=== PATIENT | female | born 1985 | race Caucasian/White ===

== ENCOUNTER 2024-01-12 15:18 | Emergency (ER) | payer BC, SELFPAY ==
[2024-01-12 15:21] VITALS: BP 155/100; PULSE 88; TEMP 36.8; O2SAT 100; BMI 39.2
[2024-01-12 16:12] LABS: Bilirubin Urine NEGATIVE (NEGATIVE); Blood Urine NEGATIVE (NEGATIVE); Clarity Urine CLEAR (CLEAR); Color Urine LT. YELLOW (YELLOW); Glucose Urine UA NEGATIVE (NEGATIVE); Ketones Urine NEGATIVE (NEGATIVE); Leukocyte Esterase Urine NEGATIVE (NEGATIVE); Nitrite Urine NEGATIVE (NEGATIVE); Protein Urine NEGATIVE (NEG/TRACE); Specific Gravity Urine <=1.005 (1.005-1.025); Urobilinogen Urine 0.2 EU/dL (0.2-1.0)
[2024-01-12 16:25] LABS: Bacteria Urine NONE SEEN #/HPF (NONE SEEN); Cast Seen? NONE SEEN #/LPF (NONE SEEN); Crystals Seen? None Seen #/HPF (None Seen); Mucus Urine NONE SEEN (NONE SEEN); RBC Urine NONE SEEN #/HPF (0-2); Squamous Epithelial Cell Urine FEW #/LPF (NONE/RARE); Urine Culture Indicated NO; WBC Urine NONE SEEN #/HPF (NONE SEEN)
[2024-01-12] MEDS: 0.9 % SODIUM CHLORIDE 1,000 ML 999 ML IV (16:37)
[2024-01-12 16:39] LABS: Basophils Percent Auto 0.3 % (0.2-2.0); Eosinophils Absolute Auto 0.1 10^3/uL (0.0-0.7); Hematocrit 41.1 % (36.0-48.0); Hemoglobin 13.1 g/dL (12.0-16.0); Immature Granulocytes Abs Auto 0.04 10^3/uL (0.00-0.03); Immature Granulocytes Pct Auto 0.6 % (0.0-0.5); Lymphocytes Absolute Auto 1.2 10^3/uL (1.2-3.8); Lymphocytes Percent Auto 16.7 % (20.5-60.0); Mean Corpuscular HGB Conc 31.9 g/dL (29.9-35.2); Mean Corpuscular Hemoglobin 27.4 pg (26.7-34.0); Monocytes Absolute Auto 0.4 10^3/uL (0.3-0.8); Monocytes Percent Auto 5.9 % (1.7-12.0); Neutrophils Absolute Auto 5.5 10^3/uL (1.4-6.5); Neutrophils Percent Auto 75.5 % (43.0-75.0); Platelet Count 215 10^3/uL (150-450); Red Blood Count 4.78 10^6/uL (4.20-5.40); Red Cell Distribution Width 13.5 % (11.0-15.0); White Blood Count 7.2 10^3/uL (4.0-11.0)
[2024-01-12 16:47] LABS: Anion Gap 14.1; BUN Creatinine Ratio 13.1; Calcium 8.7 mg/dL (8.5-10.1); Carbon Dioxide 26.2 mmol/L (21.0-32.0); Chloride 104 mmol/L (98-107); Estimated GFR (African America >60 (>=60); Estimated GFR (Non-African Ame >60 (>=60); Glucose 114 mg/dL (74-106); Potassium 4.3 mmol/L (3.5-5.1); Sodium 140 mmol/L (136-145)
--- NOTE | 2024-01-12 17:07 | CT_ITS ---
The [address] [address] Patient Name: GAMA CASTILLO MRN: [id number] date: 1985 Sex: F Assigned Patient Location: ER Current Patient Location: ED.MAIN Accession/Order Number: [id number] Exam Date: 01/12/2024 16:54 Report Date: 01/12/2024 18:13 At the request of: BALDEV POWERS Procedure: CT abdomen pelvis w con EXAM: CT abdomen pelvis w con HISTORY: lower abd pain COMPARISON: None. TECHNIQUE: Enhanced helical acquisition obtained through the abdomen and the pelvis. FINDINGS: The visualized lung bases and the pleural spaces are clear. The gallbladder is partially contracted. No significant biliary ductal dilatation. The liver, spleen, pancreas, adrenal glands and the kidneys are unremarkable. No enlarged lymph nodes within the abdomen or the pelvis. Small fat-containing umbilical hernia. Normal appendix. Small volume of free fluid within the pelvis. Prior hysterectomy. CT/CT abdomen pelvis w con IMPRESSION: 1. Small volume of free fluid within the pelvis. This may be physiologic. Prior hysterectomy. 2. Normal appendix. 3. Small fat-containing umbilical hernia. Electronically authenticated by: YO COOPER Date: 01/12/2024 18:13
--- NOTE | 2024-01-12 17:40 | ED.GENADUL1 ---
HPI HPI - General Adult General Chief complaint: Urogenital-Female Stated complaint: Abdominal Pain Time Seen by Provider: 01/12/24 15:23 Source: patient Mode of arrival: walk-in Limitations: no limitations History of Present Illness HPI narrative: 38-year-old female presents to the emergency department with complaint of pelvic pain. Onset about 3 days ago. Describes as sharp. Symptoms have been waxing and waning in severity. Has noted some increase in pain after urinating. She has had some urinary frequency. History of hysterectomy. Denies any fever, chills, nausea, vomiting, diarrhea. Quality:?Sharp Severity:?Mild Timing:?As above Context: Normal setting and activity? Modifying factors:?as above Associated symptoms: as above Related Data Home Medications ?Medication ?Instructions ?Recorded ?Confirmed duloxetine 60 mg capsule,delayed 60 mg PO DAILY 01/12/24 01/12/24 release omeprazole 20 mg capsule,delayed 20 mg PO DAILY 01/12/24 01/12/24 release semaglutide (weight loss) 0.25 0.25 mg subcut Q7D 01/12/24 01/12/24 mg/0.5 mL subcutaneous pen injector (Wegovy) Allergies Allergy/AdvReac Type Severity Reaction Status Date / Time No Known Drug Allergies Allergy Verified 01/12/24 15:24 Opioid HPI Opioid Management Most Recent Opioid Data: No Data to Display Review of Systems ROS Constitutional Denies: fever, chills or fatigue Cardiovascular Denies: chest pain Respiratory Denies: shortness of breath Gastrointestinal Reports: abdominal pain; Denies: nausea or vomiting Genitourinary Reports: urinary frequency and pelvic pain; Denies: painful urination or blood in urine Neurological Denies: headache Exam Constitutional Vital Signs, click to edit/add: Last Vital Signs Temp 98.2 F 01/12/24 15:21 Pulse 88 01/12/24 15:21 Resp 18 01/12/24 15:21 BP 155/100 H 01/12/24 15:21 Pulse Ox 100 01/12/24 15:21 O2 Del Method Room Air 01/12/24 15:21 Common normals: no apparent distress, oriented x3 and alert HENMT Common normals: normocephalic and head/scalp atraumatic Nose: external nose normal Respiratory Common normals: normal respiratory effort and clear to auscultation bilaterally Cardio Common normals: regular rate, regular rhythm and no murmurs Rate: regular rate Rhythm: regular rhythm GI Inspection: normal to inspection Palpation: soft and tender (epigastric and suprapubic); no guarding and not rigid Extremity Common normals: normal to inspection Neuro Common normals: oriented x3, no focal motor deficits, no sensory deficits noted and gait normal Sensorium/orientation: alert Psych Common normals: thought process normal, cooperative and affect normal Thought process: normal thought process Course Reevaluation(s) Reevaluation #1: Patient reports that she is currently on having some mild epigastric pain. Discussed with patient results, plan, and disposition. She is agreeable. Time: 18:14 Vital Signs Vital signs: Vital Signs Temperature 98.2 F 01/12/24 15:21 Pulse Rate 88 01/12/24 15:21 Respiratory Rate 18 01/12/24 15:21 Blood Pressure 155/100 H 01/12/24 15:21 Pulse Oximetry 100 01/12/24 15:21 Oxygen Delivery Method Room Air 01/12/24 15:21 Temperature 98.2 F 01/12/24 15:21 Pulse Rate 88 01/12/24 15:21 Respiratory Rate 18 01/12/24 15:21 Blood Pressure 155/100 H 01/12/24 15:21 Pulse Oximetry 100 01/12/24 15:21 Oxygen Delivery Method Room Air 01/12/24 15:21 Medical Decision Making MDM Narrative Medical decision making narrative: This is a pleasant 38-year-old female presented to the emergency department with chief complaint of pelvic pain. Symptoms have been waxing waning over the past 3 days. Has noted increase in pain after she urinates. + Urinary frequency. On arrival, afebrile, vital signs are stable. On exam, nontoxic, well-appearing patient in no distress. She has some mild epigastric tenderness. States she just urinated and her pelvic pain has improved. No rebound or guarding. Heart regular rate and rhythm. Lung sounds clear and equal bilaterally. Labs reveal No leukocytosis, anemia, thrombocytopenia, electrolyte imbalance, renal impairment. Glucose 114. Urinalysis reveals no hematuria or evidence of infection. CT abdomen pelvis imaging, per radiologist reveals small volume of free fluid within the pelvis. This may be physiologic. Prior hysterectomy. Normal appendix. Small fat-containing umbilical hernia. Patient declined any pain medicines or antiemetics during ED course. She remained stable. Only had small amount of epigastric pain at time of disposition. Likely nonspecific pelvic, epigastric pain Less likely appendicitis, perforation based on imaging. Less likely as she has history of hysterectomy Consideration made as patient started taking Wegovy injections again in relation to possible side effect. Did develop constipation during another treatment period. Disposition ? The patient was discharged. Plan: Patient will be discharged to home. Condition at time of disposition: stable Patient declined any prescriptions to go home with. Advised to follow up with primary provider. Advised to return for any worsening and/or development of new, concerning signs or symptoms PLEASE NOTE: Portions of the medical record may have been produced using electronic military lawyer and may contain errors with respect to translation of words which may not have been identified prior to finalization of the chart. Medical Records Medical records reviewed: Yes I reviewed the patient's medical records Lab Data Lab results reviewed: Yes I reviewed the patient's lab results Labs: Lab Results 01/12/24 01/12/24 Range/Units 15:45 16:31 WBC 7.2 (4.0-11.0) 10^3/uL RBC 4.78 (4.20-5.40) 10^6/uL Hgb 13.1 (12.0-16.0) g/dL Hct 41.1 (36.0-48.0) % MCV 86.0 (81.0-99.0) fL MCH 27.4 (26.7-34.0) pg MCHC 31.9 (29.9-35.2) g/dL RDW 13.5 (11.0-15.0) % Plt Count 215 (150-450) 10^3/uL MPV 11.0 (9.5-13.5) fL Neut % (Auto) 75.5 H (43.0-75.0) % Lymph % (Auto) 16.7 L (20.5-60.0) % [place] % (Auto) 5.9 (1.7-12.0) % Eos % (Auto) 1.0 (0.9-7.0) % Baso % (Auto) 0.3 (0.2-2.0) % Neut # (Auto) 5.5 (1.4-6.5) 10^3/uL Lymph # (Auto) 1.2 (1.2-3.8) 10^3/uL [place] # (Auto) 0.4 (0.3-0.8) 10^3/uL Eos # (Auto) 0.1 (0.0-0.7) 10^3/uL Baso # (Auto) 0.0 (0.0-0.1) 10^3/uL Abs Immat Gran (auto) 0.04 H (0.00-0.03) 10^3/uL Imm/Tot Granulo (auto) 0.6 H (0.0-0.5) % Sodium 140 (136-145) mmol/L Potassium 4.3 (3.5-5.1) mmol/L Chloride 104 (98-107) mmol/L Carbon Dioxide 26.2 (21.0-32.0) mmol/L Anion Gap 14.1 BUN 11.0 (7.0-18.0) mg/dL Creatinine 0.84 (0.55-1.02) mg/dL Est GFR ( Amer) >60 (>=60) Est GFR (Non-Af Amer) >60 (>=60) BUN/Creatinine Ratio 13.1 Glucose 114 H (74-106) mg/dL Calcium 8.7 (8.5-10.1) mg/dL Urine Color Lt. yellow (YELLOW) Urine Clarity Clear (CLEAR) Urine pH 6.0 (5.0-9.0) Ur Specific [place] <=1.005 A (1.005-1.025) Urine Protein Negative (NEG/TRACE) mg/dL Urine Glucose (UA) Negative (NEGATIVE) mg/dL Urine Ketones Negative (NEGATIVE) mg/dL Urine Occult Blood Negative (NEGATIVE) Urine Nitrite Negative (NEGATIVE) Urine Bilirubin Negative (NEGATIVE) Urine Urobilinogen 0.2 (0.2-1.0) EU/dL Ur Leukocyte Esterase Negative (NEGATIVE) Urine RBC None seen (0-2) #/HPF Urine WBC None seen (NONE SEEN) #/HPF Ur Squamous Epith Cells Few A (NONE/RARE) #/LPF Urine Crystals None seen (None Seen) #/HPF Urine Bacteria None seen (NONE SEEN) #/HPF Urine Casts None seen (NONE SEEN) #/LPF Urine Mucus None seen (NONE SEEN) Ur Culture Indicated? No Imaging Data CT scan - abdomen: Radiologist's impression: ITS Impressions Abdomen/Pelvis CT 01/12/24 17:07 IMPRESSION: 1. Small volume of free fluid within the pelvis. This may be physiologic. Prior hysterectomy. 2. Normal appendix. 3. Small fat-containing umbilical hernia. Electronically authenticated by: YO COOPER Date: 01/12/2024 17:55 Discharge Plan Discharge Stand Alone Forms: Portal Instructions Chief Complaint: Urogenital-Female Clinical Impression: Acute pain in female pelvis, Increased urinary frequency Patient Disposition: Home, Self-Care Time of Disposition Decision: 18:13 Condition: Good Mode of Transportation: Private Vehicle Prescriptions / Home Meds: No Action duloxetine 60 mg capsule,delayed release(DR/EC) 60 mg PO DAILY omeprazole 20 mg capsule,delayed release(DR/EC) 20 mg PO DAILY Wegovy 0.25 mg/0.5 mL pen injector 0.25 mg SUBCUT Q7D Print Language: Upper Sorbian Instructions: Pelvic Pain in Women (ED) Referrals: GIOVANI LOPEZ [Primary Care Provider] - 1 week
[2024-01-12 18:56] VITALS: BP 140/89; PULSE 82; O2SAT 97
== END 2024-01-12 18:58 | disposition home or self-care (01) ==
PROVIDERS: Physician Assistant; Emergency Provider Emergency Medicine; PCP Internal Medicine
DX: R10.2 Pelvic and perineal pain (principal); R35.0 Frequency of micturition; Z90.710 Acquired absence of both cervix and uterus
CPT/HCPCS: 36415; 74177; 80048; 81001; 85025; 99285; Q9967